=== PATIENT | male | born 1960 | race Caucasian/White ===

== ENCOUNTER 2024-08-31 10:58 | Inpatient (IN) | payer SELFPAY ==
[~2024-08-31] VITALS: Ht 175.3 cm; Wt 46.6 kg
[~2024-08-31 10:58] MED LIST: AMLO5TAB4 PO
--- NOTE | 2024-08-31 11:21 | EKG ---
[facility] Test Date: 2024-08-31 Test Time: 11:18:51 Pat Name: CAROLIN CORTÉS Department: ED Room: 414 Gender: M Archivist Economic History: 0723 : 1960 Requested By: ABIMBOLA PARKS Order Number: [id number] Reading MD: Krupa Eli Measurements Intervals [place] Rate: 72 P: 90 SD: 137 QRS: 91 QRSD: 101 T: 85 QT: 432 QTc: 475 Interpretive Statements (Incomplete analysis due to missing data in precordial lead V6) Sinus rhythm Anterior infarct, old Compared to ECG 08/23/2024 09:48:15 Atrial abnormality no longer present Left ventricular hypertrophy no longer present Myocardial infarct finding still present Electronically Signed On 09-01-2024 14:06:42 CDT by Krupa Eli Please click the below link to view image of tracing.
[2024-08-31 11:27] LABS: IMMATURE GRANULOCYTE ABSOLUTE 0.05 K/uL (0-1); NUCLEATED RED BLOOD CELLS 0.0 % (0.0-0.19); PLATELET COUNT (AUTO) 269 K/uL (130-400); RED BLOOD CELL COUNT(AUTO) 5.04 MIL/uL (4.50-6.20); RED CELL DISTRIBUTION WIDTH 13.7 % (11.0-15.5); WHITE BLOOD COUNT (AUTO) 11.6 K/uL (4.8-10.8)
--- NOTE | 2024-08-31 11:51 | HMCIMG ---
EXAM: CR Chest, 2 View. CLINICAL HISTORY: sob COMPARISON: Radiograph dated August 24, 2024 FINDINGS: Chronic interstitial lung disease. Interval increased left perihilar and bibasilar airspace disease (right greater than left) that is presumed to reflect pneumonia. Small bilateral effusions. No pneumothorax. Heart size and pulmonary vessels appear within normal limits. IMPRESSION: 1. Chronic obstructive pulmonary disease. Pneumonia with increased left perihilar and bibasilar airspace disease, right greater than left. 2. Small bilateral pleural effusions. /Silva
--- NOTE | 2024-08-31 11:55 | ERN ---
General Chief Complaint: Shortness of Breath Stated Complaint: SOB Time Seen by MD: 11:00 Source: patient History of Present Illness Initial Comments Patient is a 64-year-old gentleman coming in complaining of shortness a breath. Patient states he was hospitalized for the same reason week ago. Patient does state he has a history of COPD. Allergies: Coded Allergies: codeine (Unverified Allergy, Unknown, 08/23/24) Home Meds Active Scripts Amlodipine Besylate (Norvasc 5Mg Tab) 5 Mg Tablet, 10 MG PO DAILY for 30 Days, #30 TAB Prov:BETO COOMBS NP 08/25/24 Past Medical History Past Medical History: COPD, Hypertension, Pneumonia Past Surgical History: None ROS Dictation CONSTITUTIONAL: No chills, no fever, no weakness, no diaphoresis, no malaise. HEAD/FACE: No signs of trauma. EENT: No eye pain, no blurred vision, no tearing, no double vision, no ear pain, no ear discharge, no nose pain, no nasal congestion, no throat pain, no throat swelling, no mouth pain. RESPIRATORY: No cough, no orthopnea, SOB, no stridor, no wheezing. CARDIOVASCULAR: No chest pain, no edema, no palpitations, no syncope. GASTROINTESTINAL/ABDOMINAL: No abdominal pain, no constipation, no diarrhea, no nausea, no vomiting. GENITOURINARY: No abnormal discharge, no dysuria, no frequent urination, no hematuria. No complaints of pain in the genitals. MUSCULOSKELETAL: No back pain, no gout, no joint pain, no joint swelling, no muscle pain, no muscle stiffness, no neck pain. INTEGUMENTARY: No change in color, no change in hair/nails, no dryness, no lesion, no lumps, no rash. NEUROLOGICAL/PSYCH: No anxiety, not depressed, no emotional problem, no headache, no numbness, no pre-existing deficit, no history of seizures, no tremors, no weakness. HEMATOLOGIC/LYMPHATIC: Not anemic, no history of blood clots, no apparent bleeding, no bruising, glands not swollen. All Systems Negative, Except as Noted. Physical Exam Physical Exam Dictation VITAL SIGNS: Reviewed. GENERAL APPEARANCE: Alert, oriented x3, no acute distress, obese. HEAD AND FACE: Non-traumatic. EYES: PERRL, pink conjunctivas, eyelid no trauma, anterior chamber clear. EARS: Pinnas intact and no signs of trauma or erythema. Ear canals clear and no discharge. TMs no erythema. NOSE: No discharge, no bleeding. OROPHARYNX: Mouth normal, teeth no caries, tongue pink. Pharynx clear, no erythema. Tonsils no exudates, no abscesses noted. Mucous membrane moist. NECK: Supple, non-tender, no thyromegaly, no masses, no JVD, no bruits. BREAST: Deferred. CHEST: No tenderness, no crepitus, no paradoxical movement, no retractions. LUNGS: Clear, well-ventilated, symmetric, no rales, no wheezing, no rhonchi, no stridor, good breath sounds bilaterally. HEART: Regular rate, regular rhythm, no murmur, no gallops. VASCULAR: No peripheral edema. ABDOMEN: Soft, positive bowel sounds, nondistended, no guarding, nontender, no rebound, no masses no hepatomegaly, no splenomegaly, no Broderick's sign, no hernias. RECTAL: Deferred. GENITAL: Deferred. NEUROLOGICAL: Normal speech, gross motor function intact, gross sensory function intact. MUSCULOSKELETAL: Neck nontender, full range of motion, back nontender, full range of motion. EXTREMITIES: Nontender, full range of motion. SKIN: Color pink, dry, no turgor, no rash, no lacerations, no abrasions, no contusions. LYMPHATICS: Deferred. Results Laboratory and Microbiology Lab and Micro Result Laboratory Tests Test 08/31/24 11:19 08/31/24 12:53 White Blood Count 11.6 K/uL (4.8-10.8) H Red Blood Count 5.04 MIL/uL (4.50-6.20) Hemoglobin 15.6 g/dL (14.0-18.0) Hematocrit 46.9 % (42-54) Mean Corpuscular Volume 93.1 fL (79-99) Mean Corpuscular Hemoglobin 31.0 pg (27.0-33.0) Mean Corpuscular Hemoglobin Concent 33.3 g/dL (32.0-36.0) Red Cell Distribution Width 13.7 % (11.0-15.5) Platelet Count 269 K/uL (130-400) Mean Platelet Volume 9.3 fL (7.5-10.5) Immature Granulocyte % (Auto) 0.4 % (0-1) Neutrophils (%) (Auto) 91.0 % (40.0-77.0) H Lymphocytes (%) (Auto) 3.2 % (21.0-51.0) L Monocytes (%) (Auto) 5.2 % (3.0-13.0) Eosinophils (%) (Auto) 0.0 % (0.0-8.0) Basophils (%) (Auto) 0.2 % (0.0-5.0) Neutrophils # (Auto) 10.6 K/uL (1.8-7.7) H Lymphocytes # (Auto) 0.4 K/uL (1.0-4.8) L Monocytes # (Auto) 0.6 K/uL (0.1-1.0) Eosinophils # (Auto) 0.00 K/uL (0.00-0.70) Basophils # (Auto) 0.02 K/uL (0.00-0.20) Absolute Immature Granulocyte (auto 0.05 K/uL (0-1) Nucleated Red Blood Cells 0.0 % (0.0-0.19) Sodium Level 140 mmol/L (136-145) Potassium Level 5.0 mmol/L (3.5-5.1) Chloride Level 98 mmol/L (101-111) L Carbon Dioxide Level 33 mmol/L (21-32) H Blood Urea Nitrogen 13 mg/dL (7-18) Creatinine 1.0 mg/dL (0.5-1.3) Glomerular Filtration Rate Calc 83 mL/min (>90) Random Glucose 130 mg/dL (70-105) H Total Calcium 10.0 mg/dL (8.5-10.1) Magnesium Level 2.40 mg/dL (1.80-2.40) Troponin I High Sensitivity 7 ng/L (4-75) B-Type Natriuretic Peptide 176 pg/mL (0-100) H Urine Opiates Screen NEGATIVE (NEGATIVE) Urine Barbiturates Screen NEGATIVE (NEGATIVE) Urine Phencyclidine Screen NEGATIVE (NEGATIVE) Urine Amphetamines Screen NEGATIVE (NEGATIVE) Urine Benzodiazepines Screen POSITIVE (NEGATIVE) H Urine Cocaine Screen POSITIVE (NEGATIVE) H Urine Marijuana (THC) Screen POSITIVE (NEGATIVE) H Labs Reviewed?: Yes EKG/XRAY/US/CT/MRI EKG Comment 08/31/2024 time 11:22 a.m. Ventricular rate 74 Sinus rhythm [place] [address] wave elevation or depression X-RAY Comment [facility] [address] [place] [address] IMAGING REPORT Signed PATIENT: CAROLIN CORTÉS MR#: [id number] : 1960 SEX: M AGE: 64 LOCATION: [facility] ORDER 110 STATUS: REG ER REPORT#: [id number] SERVICE [id number] REASON: sob ORDERING PHYSICIAN: ABIMBOLA PARKS MD PROCEDURE: CXR1VW - CHEST 1VW EXAM: CR Chest, 2 View. CLINICAL HISTORY: sob COMPARISON: Radiograph dated August 24, 2024 FINDINGS: Chronic interstitial lung disease. Interval increased left perihilar and bibasilar airspace disease (right greater than left) that is presumed to reflect pneumonia. Small bilateral effusions. No pneumothorax. Heart size and pulmonary vessels appear within normal limits. IMPRESSION: 1. Chronic obstructive pulmonary disease. Pneumonia with increased left perihilar and bibasilar airspace disease, right greater than left. 2. Small bilateral pleural effusions. /Critz DICTATED BY: ARABELLA BRUNER Jr., MD DATE: 08/31/241249 ELECTRONICALLY SIGNED BY: ARABELLA BRUNER Jr., MD DATE: 08/31/24 125 MDM MDM: Differential diagnosis: Shortness of breath, pulmonary infiltrates, cocaine abuse, history of COPD, right lung infiltrate Rationale: Tests considered and ordered secondary to shared decision making include: labs, ECG and radiology Previous outside records reviewed: Old ER visits. Risk of complication and/or morbidity or mortality of patient management: None Medications-Per medication reconciliation Need for hospitalization: Patient does meet criteria for hospitalization. Need for emergency major/minor surgery: No There are no social concerns with this patient. Prescription drug management Prescriptions will include symptomatic care Patient's prior external medical records from other ER visits were reviewed by me as indicated. Prior testing and results from previous visits were reviewed. Prior tests were taken into account with medical decision making and resource utilization, independent historian/historians were used to obtain complete medical history. I independently interpreted the test that were performed, results were reviewed by me and considered findings on radiology if ordered. Medical management and examination interpretation discussions were had by me with other qualified healthcare professionals as indicated for the patient's care. Patient is a 64-year-old gentleman coming in complaining of shortness of breath. On physical exam there is crackles in bilateral lung wu. X-ray disclose a right lung infiltrate. Patient is positive for polysubstance. Patient will be admitted under the care hospitalist group for ongoing management. ED Course Orders Procedure Category Date Status Time Cbc With Differential LAB 08/31/24 Complete 11:03 Chest 1vw RAD 08/31/24 Resulted 11:03 12 Lead Ekg Tracing- EKG 08/31/24 Complete Technical 11:03 Magnesium LAB 08/31/24 Complete 11:03 Troponin I High LAB 08/31/24 Complete Sensitivity 11:03 Basic Metabolic Panel LAB 08/31/24 Complete 11:03 B-Type Natriuretic LAB 08/31/24 Complete Peptide 11:03 Drug Screen Urine LAB 08/31/24 Complete 11:55 Acetaminophen 500mg PHA 08/31/24 Complete Tab (Tylenol 500mg T 13:00 Ceftriaxone 1g Vial PHA 08/31/24 Complete (Rocephine 1g Inj) 13:30 Azithromycin 500mg+Ns PHA 08/31/24 In Process 250ml (Azithromyci 13:10 Methylprednisolone PHA 08/31/24 Complete Succ 125mg (Solu-Medr 13:30 Ipratropium/Albuterol PHA 08/31/24 Complete Neb (Duoneb) 13:30 Current Medications Medications (Trade) Dose Ordered Sig/Jeffery Route PRN Reason Start Time Stop Time Status Last Admin Dose Admin Acetaminophen (TYLenol 500MG TAB) 1,000 mg ONCE ONCE PO 08/31/24 13:00 08/31/24 13:01 DC Albuterol (DUOneb) 2 udvial ONCE ONCE IH 08/31/24 13:30 08/31/24 13:31 DC Azithromycin 250 ml @ 250 mls/hr Q24H STAT IVPB 08/31/24 13:10 08/31/24 14:09 Ceftriaxone Sodium (ROCEphine 1G INJ) 1 gm ONCE ONCE IVPB 08/31/24 13:30 08/31/24 13:31 DC Methylprednisolone Sodium Succinate (Solu-medROL 125MG) 125 mg ONCE ONCE IVP 08/31/24 13:30 08/31/24 13:31 DC Vital Signs Date Time Temp Pulse Resp B/P (MAP) Pulse Ox O2 Delivery O2 Flow Rate FiO2 08/31/24 11:05 78 22 191/94 98 Room Air* 0 21 08/31/24 10:59 98.1 81 20 133/78 98 Room Air 0 DX & DISP Disposition: Inpatient Decision to Admit Time: 13:43 Departure Impression: Primary Impression: COPD exacerbation Additional Impressions: Polysubstance abuse, Pneumonia involving right lung Condition: Stable Referrals: SELF,REFERRAL (PCP) ABIMBOLA PARKS MD Aug 31, 2024 11:55
[2024-08-31 12:27] LABS: CREATININE 1.0 mg/dL (0.5-1.3); GLOMERULAR FILTR. RATE CALC 83.0 mL/min (>90); GLUCOSE,RANDOM 130.0 mg/dL (70-105); SODIUM SERUM 140.0 mmol/L (136-145); UREA NITROGEN, BLOOD 13.0 mg/dL (7-18)
[2024-08-31 13:10] LABS: AMPHET/METH SCREEN,URINE NEGATIVE (NEGATIVE); BARBITURATE SCREEN, URINE NEGATIVE (NEGATIVE); CANNABINOID SCREEN,URINE POSITIVE (NEGATIVE); COCAINE SCREEN,URINE POSITIVE (NEGATIVE)
[2024-08-31] MEDS: AZITHROMYCIN 500MG+NS 250ML 250 ML IVPB STA (13:55)
[2024-08-31 13:57] VITALS: PULSE 77; RESP 20
[2024-08-31] MEDS ORDERED: PHARMACY COMMUNICATION MISC PRN (14:00)
[2024-08-31] MEDS ORDERED: 0.9%NACL 50ML IV SCH (14:00)
--- NOTE | 2024-08-31 14:04 | HP ---
[facility] H[facility]ORY [facility] PHYS[facility] Date of Service: Aug 31, 2024 Time of Service: 14:04 HISTORY OF PRESENT ILLNESS: 64-year-old male with past medical history of hypertension, history of tobacco use, history of alcohol use who presented to the hospital secondary to shortness of breath. Patient states he was recently admitted to [facility] and was treated for hypertension and COPD exacerbation. He was discharged on amlodipine. Since discharge he is still having shortness of breath which is present at rest and with exertion. Denies any fever, chills, cough, sputum production. He complains of right-sided chest pain which is most worse movement. Pain has been present for a few days. He states he has been compliant with amlodipine but has only been taking one tab instead of two. He quit smoking around a year ago but smoked for more than 20 years. Denies any abdominal pain, nausea, vomiting. Denied any changes in his bowel movement, dysuria. He has noted decreased appetite and weight loss. He currently does not take any inhalers at home. Labs in the ED were notable for white count of 11.6, hemoglobin was 15.6, platelet count was 269 K, sodium was 140, potassium was 5.0, creatinine was 1.0, chloride was 98, bicarb was 33. Chest x-ray was concerning for right lower lobe infiltrate with possible infiltrate also on the left side On presentation to the ED patient's blood pressure was noted to be 133/78, patient was saturating 98% on room air. The patient's blood pressure when seen at bedside was systolic 165/75, heart rate was in the 70s. REVIEW OF SYSTEMS CONSTITUTIONAL: Denies fevers, chills, or night sweats. No unintentional weight loss reported. NEUROLOGICAL: Denies headache, amaurosis fugax, motor weakness, sensory deficit, vertigo/spinning sensation, gait abnormalities, or tremors. ENT: No hearing loss, otalgia, otorrhea, rhinitis, rhinorrhea, hoarseness, or sore throat. CARDIOVASCULAR: Denies any exertional angina, dyspnea on exertion, orthopnea, paroxysmal nocturnal dyspnea, palpitations, life-threatening arrhythmias, claudication. PULMONARY: Positive for shortness of breath at rest and with exertion. Denied any cough, sputum production SLEEP: Denies morning headaches, daytime somnolence or napping. Denies difficulty falling asleep, staying asleep, waking from sleep. Denies knowledge of snoring. GASTROINTESTINAL: Denies any type of dysphagia to either liquids or solids. Denies nausea, vomiting, pyrosis, early satiety, abdominal pain, diarrhea, constipation, or changes in stool consistency or caliber. Denies coffee-ground emesis, hematemesis, hematochezia, or melanotic stools. GENITOURINARY: Denies frequency, urgency, nocturia, hematuria or incontinence (Storage/Irritative symptoms.) Low urinary stream, straining to void, urinary intermittency or hesitancy, splitting of the voiding stream, terminal dribbling. ENDOCRINOLOGIC: Denies polyuria, polydipsia, polyphagia or heat/cold intolerances. HEMATOLOGIC: Denies thrombophilia/previous clots, or coagulopathy/bleeding disorders. ONCOLOGIC: Denies personal history of malignancy. DERMATOLOGIC: Denies rashes or pruritus. PSYCHIATRIC: Denies any suicidal or homicidal ideation. Denies hallucinations. PAST MEDICAL HISTORY: Hypertension PAST SURGICAL HISTORY: Denied any previous surgical history PAST SOCIAL HISTORY: Smoking more than one year ago. He states he drinks around a pack a day for at least five years. He also does cocaine. FAMILY HISTORY: [ ] Coded Allergies: codeine (Unverified Allergy, Unknown, 08/23/24) PHYSICAL EXAM GENERAL APPEARANCE: The patient is awake, alert, and oriented, in no acute cardiopulmonary distress. NEUROLOGICAL: Cranial nerves II-XII grossly intact. Motor is 5/5 in bilateral upper and lower extremities proximal to distal. No sensory deficits. HEENT: Face is symmetric. Pupils are equal and reactive. Extraocular movements are intact. NECK: Supple. No JVD. No thyromegaly. No submental, submandibular, pre- /postauricular, occipital or supraclavicular lymphadenopathy. CHEST: Normal chest expansion. No Telemetry. LUNGS: Breath sounds are decreased bilaterally. CARDIOVASCULAR: Regular. S1 and S2 normal. No appreciable rubs, murmurs or gallops. ABDOMEN: His aorta is palpable in the midepigastric area. Nontender to palpation. : Deferred. No Shah. EXTREMITIES: Non-edematous and not cyanotic. No clubbing. Good capillary refill. SKIN: No skin breakdown. Vital Sign (Last 24 Hours) 08/31/24 08/31/24 08/31/24 10:59 11:05 13:57 Temp 98.1 Pulse 77 Resp 20 B/P (MAP) 191/94 Pulse Ox 98 O2 Delivery Room Air* O2 Flow Rate 0 FiO2 21 LABS: Laboratory: Test 08/31/24 12:53 08/31/24 11:19 Range/Units Urine Opiates Screen NEGATIVE NEGATIVE Urine Barbiturates Screen NEGATIVE NEGATIVE Urine Phencyclidine Screen NEGATIVE NEGATIVE Urine Amphetamines Screen NEGATIVE NEGATIVE Urine Benzodiazepines Screen POSITIVE H NEGATIVE Urine Cocaine Screen POSITIVE H NEGATIVE Urine Marijuana (THC) Screen POSITIVE H NEGATIVE White Blood Count 11.6 H 4.8-10.8 K/uL Red Blood Count 5.04 4.50-6.20 MIL/uL Hemoglobin 15.6 14.0-18.0 g/dL Hematocrit 46.9 42-54 % Mean Corpuscular Volume 93.1 79-99 fL Mean Corpuscular Hemoglobin 31.0 27.0-33.0 pg Mean Corpuscular Hemoglobin Concent 33.3 32.0-36.0 g/dL Red Cell Distribution Width 13.7 11.0-15.5 % Platelet Count 269 130-400 K/uL Mean Platelet Volume 9.3 7.5-10.5 fL Immature Granulocyte % (Auto) 0.4 0-1 % Neutrophils (%) (Auto) 91.0 H 40.0-77.0 % Lymphocytes (%) (Auto) 3.2 L 21.0-51.0 % Monocytes (%) (Auto) 5.2 3.0-13.0 % Eosinophils (%) (Auto) 0.0 0.0-8.0 % Basophils (%) (Auto) 0.2 0.0-5.0 % Neutrophils # (Auto) 10.6 H 1.8-7.7 K/uL Lymphocytes # (Auto) 0.4 L 1.0-4.8 K/uL Monocytes # (Auto) 0.6 0.1-1.0 K/uL Eosinophils # (Auto) 0.00 0.00-0.70 K/uL Basophils # (Auto) 0.02 0.00-0.20 K/uL Absolute Immature Granulocyte (auto 0.05 0-1 K/uL Nucleated Red Blood Cells 0.0 0.0-0.19 % Sodium Level 140 136-145 mmol/L Potassium Level 5.0 3.5-5.1 mmol/L Chloride Level 98 L 101-111 mmol/L Carbon Dioxide Level 33 H 21-32 mmol/L Blood Urea Nitrogen 13 7-18 mg/dL Creatinine 1.0 0.5-1.3 mg/dL Glomerular Filtration Rate Calc 83 >90 mL/min Random Glucose 130 H 70-105 mg/dL Total Calcium 10.0 8.5-10.1 mg/dL Magnesium Level 2.40 1.80-2.40 mg/dL Troponin I High Sensitivity 7 4-75 ng/L B-Type Natriuretic Peptide 176 H 0-100 pg/mL Current Medications Medications (Trade) Dose Ordered Sig/Jeffery Route PRN Reason Start Time Stop Time Status Last Admin Dose Admin Albuterol (DUOneb) 1 UDVIAL Q6H PRN IH SHORTNESS OF BREATH 08/31/24 14:00 09/30/24 13:59 UNV Azithromycin 250 ml @ 250 mls/hr Q24H STAT IVPB 08/31/24 13:10 08/31/24 14:09 08/31/24 13:55 250 MLS/HR Chlordiazepoxide HCl (LIBrium 25 MG CAP) 25 mg Q4H PRN PO ALCOHOL WITHDRAWAL PROTOCOL 08/31/24 14:00 09/07/24 13:59 UNV Famotidine (Pepcid 20mg Vial) 20 mg BID IV 08/31/24 14:00 09/30/24 13:59 UNV Hydralazine HCl (APRESOLine 20MG INJ) 10 mg Q6H PRN IV ADMINISTER FOR SBP > 180 08/31/24 14:00 09/30/24 13:59 UNV Lorazepam (AtiVAN) 1 mg Q4H PRN IVP ALCOHOL WITHDRAWAL PROTOCOL 08/31/24 14:00 09/07/24 13:59 UNV Methylprednisolone Sodium Succinate (Solu-medROL 40MG) 40 mg Q8H IVP 08/31/24 14:00 09/30/24 13:59 UNV Pharmacy Profile Note (Pharmacy Communication) 1 each PROTOCOL PRN MISC ETOH Withdrawal Score changes 08/31/24 14:00 09/07/24 13:59 UNV Piperacillin Sod/ Tazobactam Sod (Zosyn 3.375gm+NS 50ml) 3.375 gm Q8H IVPB 08/31/24 14:00 09/10/24 13:59 UNV DIAGNOSTICS / RADIOLOGY: [ ] ASSESSMENT: Suspected Community-acquired pneumonia POA Acute on chronic COPD exacerbation POA Hypoalbuminemia secondary to protein calorie malnutrition Hypertensive urgency Weight loss Alcohol abuse History of tobacco use Substance abuse with positive cocaine, marijuana, benzodiazepine Right-sided chest pain differential secondary to musculoskeletal etiology versus possible PE Dehydration PLAN: - patient to be admitted to PCCU -in reference to community-acquired pneumonia. Patient will be started on Zosyn and azithromycin. Obtain a sputum sample. We will also check D-dimer. If elevated we will obtain a CT angio of the chest for further evaluation. - in reference to COPD exacerbation. Patient will be started on DuoNebs q.6 hours. Start patient on Solu-Medrol q.8 hours. Obtain pulmonology consultation. Obtain a ABG -in reference to hypertension. The patient will be restarted on amlodipine. Start hydralazine for systolic blood pressure greater than 180 q.6 hours. -reference to alcohol use. The patient will be started on CIWA protocol for withdrawals. Start patient on banana. -reference to cocaine use, marijuana use. Patient was counseled regarding cocaine cessation. Morbidity and mortality was discussed with patient. Patient agreed to plan of care -obtain a ultrasound of the aorta to assess for aortic aneurysm. -further orders per hospitalization course. Advanced Care Planning Which of the following were discussed: Hospice care: Yes __ No _x_ Therapeutic options: Yes __ No __ Advance directives: Yes __ No __ Other discussions: Discussed with who?: patient (Patient, family or surrogates) Voluntary nature of this service was explained to the patient? Yes _x_ No __ Amount of time spent: 25 minutes JASPREET Reilly MD, MD Aug 31, 2024 14:04
[2024-08-31] MEDS: Solu-medROL 40MG VIAL IVP SCH (14:17)
[2024-08-31] MEDS: FAMOTIDINE 20MG VIAL IV SCH (14:17)
[2024-08-31] MEDS: ZOSYN 3.375GM +NS 50ML IVPB SCH (14:23)
[2024-08-31 15:02] VITALS: PULSE 78; RESP 18; O2SAT 98
[2024-08-31 15:11] LABS: ABG BASE EXCESS 3.0 mmol/L (-2.0-3.0); ABG HCO3 27.8 mmol/L (21.0-28.0); ABG OXYGEN SATURATION 95.4 % (94.0-98.0); ABG PCO2 43 mmHg (35-48); ABG PH 7.428 (7.350-7.450); DEVICE COMMENT RR BET; PO2, ARTERIAL BG 75.6 mmHg (83.0-108.0); TEMPERATURE, CELSIUS BG 37.0 CELSIUS (35.5-37.0); VENT MODE, BG RA (ROOM AIR)
[2024-08-31] MEDS ORDERED: IOHEXOL-350 75 ML VIAL IV ONE (15:16)
[2024-08-31] MEDS: amLODIPine 5 MG TAB PO ONE (15:17)
[2024-08-31] MEDS: THIAMINE HCL 100 MG, FOLic ACID 5 MG/ML VIAL 1 MG, M.V.I. IV [ADULT] 10 ML in 0.9%NACL ... IV SCH (15:51)
[2024-08-31 16:24] LABS: INFLUENZA TYPE A Negative For Type A (NEGATIVE); INFLUENZA TYPE B Negative For Type B (NEGATIVE)
[2024-08-31 16:49] LABS: SARS-CoV-2, RNA, NAAT NEGATIVE SARS CoV-2 (NEGATIVE)
--- NOTE | 2024-08-31 17:02 | HMCIMG ---
EXAM: CTA Chest with and without Intravenous Contrast for PE evaluation CLINICAL HISTORY: Pnuemonia. Rule out PE TECHNIQUE: Axial CTA images of the chest with and without intravenous contrast using a pulmonary embolism protocol. Multiplanar reconstructed images were created and reviewed. COMPARISON: CT images dated August 24, 2024 FINDINGS: PULMONARY ARTERIES: No evidence of central or segmental pulmonary embolism is seen. AORTA: Atherosclerotic changes in the form of vessel wall calcification in the arch of the aorta and the descending thoracic aorta. There is no evidence for aneurysm or dissection of the thoracic aorta. LUNGS: Severe bilateral centriacinar and paraseptal emphysema. ? 0.7 x 0.9 cm right upper lobe pulmonary nodule (series 4, image 53). Recommend repeat CT examination of the chest at 3 months. Multiple thin atelectatic bands are scattered in the bilateral lung wu. There is mild volume loss of the left lung with mild ipsilateral mediastinal shift, elevation of the left hemidiaphragm, and crowding of the left-sided ribs. There are left-sided subpleural reticulations and mild honeycombing in the left lung field with mild tractional bronchiectasis. Multifocal patchy areas of ground glass opacities are evident in the right lower lobe with adjacent fibrotic changes. Subpleural bullae along the anterior segment of the right lower lobe PLEURAL SPACES: Trace left, and small right bilateral pleural effusions. No pneumothorax evident. HEART: Heart size is within normal limits. No significant pericardial effusion. LYMPH NODES: No lymphadenopathy is evident. BONES: Degenerative changes in the visualised spine in the form of marginal osteophytes and endplate sclerosis. 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 No focal osseous abnormality or acute fracture. UPPER ABDOMEN: Images of the upper abdomen are unremarkable. IMPRESSION: 1. No pulmonary embolism. 2. Worsening right lower lobe pneumonia. 3. Severe bilateral emphysema with left lung volume loss, ipsilateral mediastinal shift, and left-sided subpleural reticulations, honeycombing, and tractional bronchiectasis. 4. 0.7 x 0.9 cm right upper lobe pulmonary nodule. Recommend repeat CT examination of the chest at 3 months. /Sieper
[2024-08-31 19:42] VITALS: PULSE 69; RESP 18; O2SAT 99
[2024-08-31 21:40] VITALS: O2SAT 96
[2024-08-31 21:42] VITALS: BP 151/65; PULSE 82; RESP 20; TEMP 97.5
[2024-09-01] VITALS (12 sets, daily range): BP systolic 98–176; BP diastolic 52–83; PULSE 57–80; RESP 18–20; TEMP 97.4–98.1; O2SAT 94–99
--- NOTE | 2024-09-01 01:20 | CONS ---
[facility] CONSULTATION NOTE Date Patient Seen: Aug 31, 2024 Time of Visit: 2330 Supervising Physician: [Dr. Salo Smith] Reason for Consultation: [Pulmo consult: PNA and COPD exacerbation ] Primary Care Physician: None ] Outpatient Specialists: [ ] Inpatient Consults: [BIS team- pulmo] PROBLEM LIST: COPD exacerbation-POA CAP-POA, right lung Severe bilateral emphysema-POA Bronchiectasis-POA Right lung nodule-POA Suspected xedjsmhr-wz-hhtcbs protein calorie malnutrition-POA Newly-diagnosed HTN Chronic ETOH dependence- 6-pack of beer a day Chronic nicotine disorder: reported 1-2 packs a day 50 years. He claims he quit 1 to 1/2 years ago PLAN: -Titrate oxygen to keep sats >92% -Neb treatment -I.S. q1H x 10 while awake -Obtain pneumo studies -Continue IV antibiotics for CAP coverage -Steroid therapy -Activate CIWA protocol -Consult dietitian in am -Defer to dayteam for bronchoscopy eval -Smoking cessation education for more than 5 minutes -IV Banana bag -Patient reports pulsating abdomen and plan is to do US aorta and echo in am, I did not appreciate it on my physical assessment -The rest of medical management per primary team HPI: [Per hospitalist's notes: "64-year-old male with past medical history of hypertension, history of tobacco use, history of alcohol use who presented to the hospital secondary to shortness of breath. Patient states he was recently admitted to [facility] and was treated for hypertension and COPD exacerbation. He was discharged on amlodipine. Since discharge he is still h aving shortness of breath which is present at rest and with exertion. Denies any fever, chills, cough, sputum production. He complains of right-sided chest pain which is most worse movement. Pain has been present for a few days. He states he has been compliant with amlodipine but has only been taking one tab instead of two. He quit smoking around a year ago but smoked for more than 20 years. Denies any abdominal pain, nausea, vomiting. Denied any changes in his bowel movement, dysuria. He has noted decreased appetite and weight loss. He currently does not take any inhalers at home. Labs in the ED were notable for white count of 11.6, hemoglobin was 15.6, platelet count was 269 K, sodium was 140, potassium was 5.0, creatinine was 1.0, chloride was 98, bicarb was 33. Chest x-ray was concerning for right lower lobe infiltrate with possible infiltrate also on the left side." BIS team was consulted for COPD exa and PNA. On my examination, patient is resting comfortably on the bed, on room air and in no acute distress. Physical assessment was unrevealing except for fine rales on bilateral bases. PAST MEDICAL HX: see above PAST SURGICAL HX: noncontributory SOCIAL HISTORY: No tobacco, ETOH, or illicit drug use Coded Allergies: codeine (Unverified Allergy, Unknown, 08/23/24) REVIEW OF SYSTEMS: 12 point ROS reviewed with patient. Pertinent positives mentioned above. Otherwise negative. PHYSICAL EXAM: GENERAL: alert, weak, awake oriented x [id number] HEENT: EOMI, Sclera non icteric, moist mucosa NECK: Supple, no JVD, trachea midline LUNGS: Fine rales breath sounds bilaterally. No wheezes HEART: Regular rate and rhythm. Normal S1 and S2, without murmurs ABD: Abdomen soft, nontender. Bowel sounds present EXT: No clubbing cyanosis or edema NEURO: Alert and oriented to person, follows commands Vital Signs (last 8hr) Date Time Temp Pulse Resp B/P (MAP) Pulse Ox O2 Delivery O2 Flow Rate FiO2 08/31/24 21:42 97.5 82 20 151/65 99 Room Air 08/31/24 21:40 96 Room Air* 0 21 08/31/24 19:42 69 18 N/Cannula Low lpm 21 08/31/24 19:30 98.4 73 18 149/70 100 Room Air* 0 21 08/31/24 18:31 98.4 79 18 138/66 100 Room Air* 0 21 LABS: Hematology Labs: Test 08/31/24 11:19 Range/Units White Blood Count 11.6 H 4.8-10.8 K/uL Red Blood Count 5.04 4.50-6.20 MIL/uL Hemoglobin 15.6 14.0-18.0 g/dL Hematocrit 46.9 42-54 % Mean Corpuscular Volume 93.1 79-99 fL Mean Corpuscular Hemoglobin 31.0 27.0-33.0 pg Mean Corpuscular Hemoglobin Concent 33.3 32.0-36.0 g/dL Red Cell Distribution Width 13.7 11.0-15.5 % Platelet Count 269 130-400 K/uL Mean Platelet Volume 9.3 7.5-10.5 fL Immature Granulocyte % (Auto) 0.4 0-1 % Neutrophils (%) (Auto) 91.0 H 40.0-77.0 % Lymphocytes (%) (Auto) 3.2 L 21.0-51.0 % Monocytes (%) (Auto) 5.2 3.0-13.0 % Eosinophils (%) (Auto) 0.0 0.0-8.0 % Basophils (%) (Auto) 0.2 0.0-5.0 % Neutrophils # (Auto) 10.6 H 1.8-7.7 K/uL Lymphocytes # (Auto) 0.4 L 1.0-4.8 K/uL Monocytes # (Auto) 0.6 0.1-1.0 K/uL Eosinophils # (Auto) 0.00 0.00-0.70 K/uL Basophils # (Auto) 0.02 0.00-0.20 K/uL Absolute Immature Granulocyte (auto 0.05 0-1 K/uL Nucleated Red Blood Cells 0.0 0.0-0.19 % Chemistry Labs: Test 08/31/24 11:19 Range/Units Sodium Level 140 136-145 mmol/L Potassium Level 5.0 3.5-5.1 mmol/L Chloride Level 98 L 101-111 mmol/L Carbon Dioxide Level 33 H 21-32 mmol/L Blood Urea Nitrogen 13 7-18 mg/dL Creatinine 1.0 0.5-1.3 mg/dL Glomerular Filtration Rate Calc 83 >90 mL/min Random Glucose 130 H 70-105 mg/dL Hemoglobin A1c 5.2 4.0-6.0 % Estimated Average Glucose (eAG) 103 70-126 mg/dL Total Calcium 10.0 8.5-10.1 mg/dL Magnesium Level 2.40 1.80-2.40 mg/dL Troponin I High Sensitivity 7 4-75 ng/L B-Type Natriuretic Peptide 176 H 0-100 pg/mL Albumin 3.7 3.5-5.0 g/dL Coagulation Labs: Test 08/31/24 11:19 Range/Units D-Dimer Quantitative (PE/DVT) 1513 *H 0-500 ng/mL DIAGNOSTICS / RADIOLOGY RESULTS: [ ] PLAN NEURO: Minimize central acting medications as possible. Maintain fall precautions, adequate lighting during the day PULMONARY: Supplemental 02 as needed. Maintain aspiration precautions at all times CARDIOVASCULAR: Follow hemodynamics. Vital signs per facility protocol GI & NUTRITION: Continue with nutritional support. Continue stool softeners and laxatives as needed. KIDNEYS & ELECTROLYTES: Strict monitoring of intake, output and overall fluid balance. Avoid nephrotoxic medications to the extent possible. Medications to be dosed according to renal function. Monitor electrolytes and replace as needed ENDOCRINE: Maintain blood glucose between 100-180 at all times. Hypoglycemia protocol in place INFECTIOUS DISEASE: Trend temperature, WBC and procalcitonin level Follow cultures, deescalate antibiotics as soon as possible. Panculture if new onset fever ONCOLOGY/HEMATOLOGY/COAGULATION: Monitor for s/s of bleeding Monitor hemoglobin, coagulation studies as needed SKIN: Pressure ulcer prevention per facility protocol Specialty mattress ORTHO/REHAB: Continue PT/OT Prophylaxis: Continue GI and DVT prophylaxis Code Status: Full Resuscitation Disposition: JUAN VILLASEÑOR AGLION Sep 01, 2024 01:20
[2024-09-01 07:03] LABS: IMMATURE GRANULOCYTE ABSOLUTE 0.04 K/uL (0-1); NUCLEATED RED BLOOD CELLS 0.0 % (0.0-0.19); PLATELET COUNT (AUTO) 250 K/uL (130-400); RED BLOOD CELL COUNT(AUTO) 4.17 MIL/uL (4.50-6.20); RED CELL DISTRIBUTION WIDTH 13.3 % (11.0-15.5); WHITE BLOOD COUNT (AUTO) 11.1 K/uL (4.8-10.8)
[2024-09-01 07:20] LABS: CREATININE 0.9 mg/dL (0.5-1.3); GLOMERULAR FILTR. RATE CALC 94.0 mL/min (>90); GLUCOSE,RANDOM 144.0 mg/dL (70-105); SODIUM SERUM 140.0 mmol/L (136-145); UREA NITROGEN, BLOOD 16.0 mg/dL (7-18)
[2024-09-01] MEDS ORDERED: NICOTINE 21 MG/ 24 HR PATCH TD SCH (09:00)
--- NOTE | 2024-09-01 09:50 | HMCIMG ---
EXAM: US examination of aorta and bilateral common iliac arteries. CLINICAL HISTORY: Assess for aortic aneurysm TECHNIQUE: Real-time ultrasound examination performed with image documentation. COMPARISON: None provided. FINDINGS: Diffuse atherosclerotic intimal wall calcifications present involving abdominal aorta and its branches with calcified intimal plaques. The proximal, mid, and distal aspects of abdominal aorta are normal in caliber measuring 2.2 x 2 x 1.9 cm, 2.2 x 1.9 x 1.9 cm and 2.1 x 2.3 x 2.1 cm in the tara-posterior, transverse and craniocaudal dimension dimensions respectively. Peak systolic velocity- 103 cm/sec. The right common iliac artery measures 1.1 x 1.2 x 1.2 cm in craniocaudal, AP and transverse dimensions. Peak systolic velocity- 85 cm/sec. The left common iliac artery measures 1 x 1.2 x 1.3 cm in craniocaudal, AP and transverse dimensions. Focal short segment stenosis of the left common iliac artery present as evidenced by increased peak systolic velocity of 417 cm/sec. IMPRESSION: Diffuse atherosclerotic intimal wall calcifications involving abdominal aorta and its branches with calcified intimal plaques. No evidence of abdominal aortic aneurysm the present study. Focal short segment stenosis of the left common iliac artery as evidenced by increased peak systolic velocity of 417 cm/sec. /[place]
--- NOTE | 2024-09-01 10:03 | PN ---
[facility] PROGRESS NOTE Date of Service: Sep 01, 2024 Time of Service: 09:55 SUBJECTIVE: [ ] 64-year-old male with past medical history of hypertension, history of tobacco use, history of alcohol use who presented to the hospital secondary to shortness of breath. Patient states he was recently admitted to [facility] and was treated for hypertension and COPD exacerbation. He was discharged on amlodipine. Since discharge he is still having shortness of breath which is present at rest and with exertion. Denies any fever, chills, cough, sputum production. He complains of right-sided chest pain which is most worse movement. Pain has been present for a few days. He states he has been compliant with amlodipine but has only been taking one tab instead of two. He quit smoking around a year ago but smoked for more than 20 years. Denies any abdominal pain, nausea, vomiting. Denied any changes in his bowel movement, dysuria. He has noted decreased appetite and weight loss. He currently does not take any inhalers at home. 09/01/24 patient was seen and examined patient continues on oxygen supplemental we will titrate on last admission patient did not meet criteria for home oxygen. Patient is on [facility] protocol patient came benefit for placement we will bring case management and social service technician. REVIEW OF SYSTEMS CONSTITUTIONAL: Denies fevers, chills, or night sweats. No unintentional weight loss reported. NEUROLOGICAL: Denies headache, amaurosis fugax, motor weakness, sensory deficit, vertigo/spinning sensation, gait abnormalities, or tremors. ENT: No hearing loss, otalgia, otorrhea, rhinitis, rhinorrhea, hoarseness, or sore throat. CARDIOVASCULAR: Denies any exertional angina, dyspnea on exertion, orthopnea, paroxysmal nocturnal dyspnea, palpitations, life-threatening arrhythmias, claudication. PULMONARY: Positive for shortness of breath at rest and with exertion. Denied any cough, sputum production SLEEP: Denies morning headaches, daytime somnolence or napping. Denies difficulty falling asleep, staying asleep, waking from sleep. Denies knowledge of snoring. GASTROINTESTINAL: Denies any type of dysphagia to either liquids or solids. Denies nausea, vomiting, pyrosis, early satiety, abdominal pain, diarrhea, co nstipation, or changes in stool consistency or caliber. Denies coffee-ground emesis, hematemesis, hematochezia, or melanotic stools. GENITOURINARY: Denies frequency, urgency, nocturia, hematuria or incontinence (Storage/Irritative symptoms.) Low urinary stream, straining to void, urinary intermittency or hesitancy, splitting of the voiding stream, terminal dribbling. ENDOCRINOLOGIC: Denies polyuria, polydipsia, polyphagia or heat/cold intolerances. HEMATOLOGIC: Denies thrombophilia/previous clots, or coagulopathy/bleeding disorders. ONCOLOGIC: Denies personal history of malignancy. DERMATOLOGIC: Denies rashes or pruritus. PSYCHIATRIC: Denies any suicidal or homicidal ideation. Denies hallucinations. PHYSICAL EXAM GENERAL APPEARANCE: The patient is awake, alert, and oriented, in no acute car diopulmonary distress. NEUROLOGICAL: Cranial nerves II-XII grossly intact. Motor is 5/5 in bilateral upper and lower extremities proximal to distal. No sensory deficits. HEENT: Face is symmetric. Pupils are equal and reactive. Extraocular movements are intact. NECK: Supple. No JVD. No thyromegaly. No submental, submandibular, pre- /postauricular, occipital or supraclavicular lymphadenopathy. CHEST: Normal chest expansion. No Telemetry. LUNGS: Breath sounds are decreased bilaterally. CARDIOVASCULAR: Regular. S1 and S2 normal. No appreciable rubs, murmurs or gallops. ABDOMEN: His aorta is palpable in the midepigastric area. Nontender to palpation. : Deferred. No Shah. EXTREMITIES: Non-edematous and not cyanotic. No clubbing. Good capillary refill. SKIN: No skin breakdown. Vital Signs (last 8hr) Date Time Temp Pulse Resp B/P (MAP) Pulse Ox O2 Delivery O2 Flow Rate FiO2 09/01/24 08:00 97.3 61 18 144/62 94 Room Air 24 09/01/24 06:45 64 18 N/Cannula Low lpm 21 09/01/24 05:12 64 18 153/66 97 Room Air 09/01/24 04:00 97.3 57 18 176/83 97 Room Air LABS: Laboratory: Test 09/01/24 05:39 08/31/24 15:16 08/31/24 15:08 08/31/24 12:53 Range/Units White Blood Count 11.1 H 4.8-10.8 K/uL Red Blood Count 4.17 L 4.50-6.20 MIL/uL Hemoglobin 12.8 L 14.0-18.0 g/dL Hematocrit 38.2 L 42-54 % Mean Corpuscular Volume 91.6 79-99 fL Mean Corpuscular Hemoglobin 30.7 27.0-33.0 pg Mean Corpuscular Hemoglobin Concent 33.5 32.0-36.0 g/dL Red Cell Distribution Width 13.3 11.0-15.5 % Platelet Count 250 130-400 K/uL Mean Platelet Volume 10.0 7.5-10.5 fL Immature Granulocyte % (Auto) 0.4 0-1 % Neutrophils (%) (Auto) 95.6 H 40.0-77.0 % Lymphocytes (%) (Auto) 1.7 L 21.0-51.0 % Monocytes (%) (Auto) 2.2 L 3.0-13.0 % Eosinophils (%) (Auto) 0.0 0.0-8.0 % Basophils (%) (Auto) 0.1 0.0-5.0 % Neutrophils # (Auto) 10.6 H 1.8-7.7 K/uL Lymphocytes # (Auto) 0.2 L 1.0-4.8 K/uL Monocytes # (Auto) 0.2 0.1-1.0 K/uL Eosinophils # (Auto) 0.00 0.00-0.70 K/uL Basophils # (Auto) 0.01 0.00-0.20 K/uL Absolute Immature Granulocyte (auto 0.04 0-1 K/uL Nucleated Red Blood Cells 0.0 0.0-0.19 % Sodium Level 140 136-145 mmol/L Potassium Level 3.3 L 3.5-5.1 mmol/L Chloride Level 104 101-111 mmol/L Carbon Dioxide Level 29 21-32 mmol/L Blood Urea Nitrogen 16 7-18 mg/dL Creatinine 0.9 0.5-1.3 mg/dL Glomerular Filtration Rate Calc 94 >90 mL/min Random Glucose 144 H 70-105 mg/dL Total Calcium 8.9 8.5-10.1 mg/dL Influenza Type A Antigen Negative For Type A NEGATIVE Influenza Type B Antigen Negative For Type B NEGATIVE SARS-CoV-2, RNA, NAAT NEGATIVE SARS CoV-2 NEGATIVE Blood Gas Specimen Type Arterial Arterial Blood pH 7.428 7.350-7.450 Arterial Blood Partial Pressure CO2 43 35-48 mmHg Arterial Blood Partial Pressure O2 75.6 L 83.0-108.0 mmHg Arterial Blood HCO3 27.8 21.0-28.0 mmol/L Arterial Blood Oxygen Saturation 95.4 94.0-98.0 % Arterial Blood Base Excess 3.0 -2.0-3.0 mmol/L Blood Gas Temperature 37.0 35.5-37.0 CELSIUS Blood Gas Vent Mode RA ROOM AIR FiO2 21.0 % Blood Gas Specimen Comment RR BET Urine Opiates Screen NEGATIVE NEGATIVE Urine Barbiturates Screen NEGATIVE NEGATIVE Urine Phencyclidine Screen NEGATIVE NEGATIVE Urine Amphetamines Screen NEGATIVE NEGATIVE Urine Benzodiazepines Screen POSITIVE H NEGATIVE Urine Cocaine Screen POSITIVE H NEGATIVE Urine Marijuana (THC) Screen POSITIVE H NEGATIVE Test 08/31/24 11:19 Range/Units D-Dimer Quantitative (PE/DVT) 1513 *H 0-500 ng/mL Hemoglobin A1c 5.2 4.0-6.0 % Estimated Average Glucose (eAG) 103 70-126 mg/dL Magnesium Level 2.40 1.80-2.40 mg/dL Troponin I High Sensitivity 7 4-75 ng/L B-Type Natriuretic Peptide 176 H 0-100 pg/mL Albumin 3.7 3.5-5.0 g/dL Current Medications Medications (Trade) Dose Ordered Sig/Jeffery Route PRN Reason Start Time Stop Time Status Last Admin Dose Admin Acetaminophen/ Codeine Phosphate (TYLenol-coDEINE TAB) 1 tab Q6H PRN PO MODERATE PAIN (4-6) 08/31/24 14:30 08/31/24 14:24 DC Albuterol (DUOneb) 1 UDVIAL Q6H PRN IH SHORTNESS OF BREATH 08/31/24 14:00 09/30/24 13:59 Albuterol (DUOneb) 1 UDVIAL [id number] IH 09/01/24 12:00 10/01/24 11:59 Amlodipine Besylate (NorvASC 5MG TAB) 5 mg DAILY PO 09/01/24 09:00 10/01/24 08:59 Azithromycin 250 ml @ 250 mls/hr Q24H STAT IVPB 08/31/24 13:10 08/31/24 14:09 DC 08/31/24 13:55 250 MLS/HR Budesonide (Pulmicort 0.5 Mg/2ml) 0.5 mg BIDRESP IH 09/01/24 18:00 10/01/24 17:59 Chlordiazepoxide HCl (LIBrium 25 MG CAP) 25 mg Q4H PRN PO ALCOHOL WITHDRAWAL PROTOCOL 08/31/24 14:00 09/07/24 13:59 Diazepam (VALium 5 MG/ML 2 ML SYG) 10 mg Q4H PRN IVP ALCOHOL WITHDRAWAL PROTOCOL 08/31/24 14:30 09/07/24 13:59 Doxycycline Hyclate (Doxycycline Hyclate) 100 mg BID PO 09/01/24 09:00 09/11/24 08:59 Famotidine (Pepcid 20mg Vial) 20 mg Q24H IV 08/31/24 14:00 09/30/24 13:59 08/31/24 14:17 20 MG Hydralazine HCl (APRESOLine 20MG INJ) 10 mg Q6H PRN IV ADMINISTER FOR SBP > 180 08/31/24 14:00 09/30/24 13:59 Lorazepam (AtiVAN) 1 mg Q4H PRN IVP ALCOHOL WITHDRAWAL PROTOCOL 08/31/24 14:00 08/31/24 14:08 DC Methylprednisolone Sodium Succinate (Solu-medROL 40MG) 40 mg Q8H IVP 08/31/24 14:00 09/30/24 13:59 09/01/24 05:03 40 MG Nicotine (Nicoderm) 21 mg DAILY TD 09/01/24 09:00 09/01/24 01:19 DC Pharmacy Profile Note (Pharmacy Communication) 1 each PROTOCOL PRN MISC ETOH Withdrawal Score changes 08/31/24 14:00 09/07/24 13:59 Piperacillin Sod/ Tazobactam Sod (Zosyn 3.375gm+NS 50ml) 3.375 gm Q8H IVPB 08/31/24 14:00 09/10/24 13:59 09/01/24 05:03 3.375 GM Sodium Chloride (NS 50ml) 50 ml AD IV 08/31/24 14:00 08/31/24 14:05 DC Thiamine HCl 100 mg/Folic Acid 1 mg/Multivitamins/ Minerals 10 ml/ Sodium Chloride 1,011.2 ml @ 100 mls/ hr Q24H IV 08/31/24 14:00 09/03/24 00:07 08/31/24 15:51 100 MLS/HR DIAGNOSTICS / RADIOLOGY: [ ] ASSESSMENT: Suspected Community-acquired pneumonia POA Acute on chronic COPD exacerbation POA Hypoalbuminemia secondary to protein calorie malnutrition Hypertensive urgency Weight loss Alcohol abuse History of tobacco use Substance abuse with positive cocaine, marijuana, benzodiazepine Right-sided chest pain differential secondary to musculoskeletal etiology versus possible PE Dehydration PLAN: Admit to medical-surgical Consulted blower room attendant's Antibiotics Zosyn and azithromycin IV Microbiology sputum sample pending Oxygen supplemental to keep O2 sats above 92 % as needed continues on bronchodilators and IV steroids. Continue IS while awake. smoking, Marijuana and cocaine use: Cessation was discussed provided community resources. Imaging CT chest worsening right lower lobe pneumonia. 0.7 x 0.9 cm right upper lobe pulmonary nodule. Recommend repeat CT examination of the chest at 3 months. US AORTA noted ruled out aortic aneurysm. Blood pressure well controlled continue with amlodipine. And PRN hydralazine for systolic blood pressure greater than 180 q.6 hours. Continue CIWA protocol for withdrawals. Case management for discharge planning -reference to cocaine use, marijuana use. Patient was counseled regarding cocaine cessation. Morbidity and mortality was discussed with patient. Patient agreed to plan of care -further orders per hospitalization course. ATTESTATION BY PHYSICIAN I have seen and examined the patient. I reviewed the documentation, medical decision making, and treatment plan as noted by the mid-level provider above. I agree with the findings and plan of care. Altagracia Juarez MD, ELIZABETH NP Sep 01, 2024 10:03
[2024-09-01] MEDS: DOXYCYCLINE HYCLATE 100 MG TABLET PO SCH (10:37)
[2024-09-01] MEDS: amLODIPine 5 MG TAB PO SCH (10:38)
[2024-09-01] MEDS: SODIUM CHLORIDE 3% FOR INHALATION 4 ML/AMP VIAL.NEB IH ONE (10:57)
--- NOTE | 2024-09-01 12:03 | PN ---
[facility] PROGRESS NOTE Date Patient Seen: Sep 01, 2024 Time of Visit: 12:03 Supervising Physician: Dr. Salo Smith PROBLEM LIST: Acute COPD exacerbation, POA Pneumonia, CAP Severe bilateral emphysema, POA Bronchiectasis, POA Right lung nodule, POA, likely bleb, no nodule per Dr. Smith Suspected [id number] protein calorie malnutrition-POA Hypertension Chronic ETOH dependence- 6-pack of beer a day Chronic nicotine disorder: reported 1-2 packs a day 50 years. He claims he quit 1 to 1/2 years ago Polysubstance abuse (+) cocaine, THC INTERVAL HISTORY: Patient assessed at bedside. AAOX3. Currently on room air. Complains of minimal shortness of breath with exertion. Complains of phlegm production. Denies any chest pain, abdominal pain, nausea or vomiting. Advised on polysubstance cessation. No family at bedside. PLAN: CPT and IS Continue on IV Zosyn and Doxycycline Obtain pneumo studies Continue on IV steroids No bronchoscopy warranted, no nodule noted per Dr. Smith Polysubstance/smoking cessation The rest of medical management per primary team REVIEW OF SYSTEMS: 12 point ROS reviewed with patient. Pertinent positives mentioned above. Otherwise negative. PHYSICAL EXAM: GENERAL: alert, weak, awake oriented x [id number] HEENT: EOMI, Sclera non icteric, moist mucosa NECK: Supple, no JVD, trachea midline LUNGS: Fine rales breath sounds bilaterally. No wheezes HEART: Regular rate and rhythm. Normal S1 and S2, without murmurs ABD: Abdomen soft, nontender. Bowel sounds present EXT: No clubbing cyanosis or edema NEURO: Alert and oriented to person, follows commands Vital Signs (last 8hr) Date Time Temp Pulse Resp B/P (MAP) Pulse Ox O2 Delivery O2 Flow Rate FiO2 09/01/24 10:58 77 20 09/01/24 08:00 97.3 61 18 144/62 94 Room Air 24 09/01/24 08:00 94 Room Air* 0 09/01/24 06:45 64 18 N/Cannula Low lpm 09/01/24 05:12 64 18 153/66 97 Room Air LABS: Hematology Labs: Test 09/01/24 05:39 Range/Units White Blood Count 11.1 H 4.8-10.8 K/uL Red Blood Count 4.17 L 4.50-6.20 MIL/uL Hemoglobin 12.8 L 14.0-18.0 g/dL Hematocrit 38.2 L 42-54 % Mean Corpuscular Volume 91.6 79-99 fL Mean Corpuscular Hemoglobin 30.7 27.0-33.0 pg Mean Corpuscular Hemoglobin Concent 33.5 32.0-36.0 g/dL Red Cell Distribution Width 13.3 11.0-15.5 % Platelet Count 250 130-400 K/uL Mean Platelet Volume 10.0 7.5-10.5 fL Immature Granulocyte % (Auto) 0.4 0-1 % Neutrophils (%) (Auto) 95.6 H 40.0-77.0 % Lymphocytes (%) (Auto) 1.7 L 21.0-51.0 % Monocytes (%) (Auto) 2.2 L 3.0-13.0 % Eosinophils (%) (Auto) 0.0 0.0-8.0 % Basophils (%) (Auto) 0.1 0.0-5.0 % Neutrophils # (Auto) 10.6 H 1.8-7.7 K/uL Lymphocytes # (Auto) 0.2 L 1.0-4.8 K/uL Monocytes # (Auto) 0.2 0.1-1.0 K/uL Eosinophils # (Auto) 0.00 0.00-0.70 K/uL Basophils # (Auto) 0.01 0.00-0.20 K/uL Absolute Immature Granulocyte (auto 0.04 0-1 K/uL Nucleated Red Blood Cells 0.0 0.0-0.19 % Chemistry Labs: Test 09/01/24 05:39 08/31/24 11:19 Range/Units Sodium Level 140 136-145 mmol/L Potassium Level 3.3 L 3.5-5.1 mmol/L Chloride Level 104 101-111 mmol/L Carbon Dioxide Level 29 21-32 mmol/L Blood Urea Nitrogen 16 7-18 mg/dL Creatinine 0.9 0.5-1.3 mg/dL Glomerular Filtration Rate Calc 94 >90 mL/min Random Glucose 144 H 70-105 mg/dL Total Calcium 8.9 8.5-10.1 mg/dL Hemoglobin A1c 5.2 4.0-6.0 % Estimated Average Glucose (eAG) 103 70-126 mg/dL Magnesium Level 2.40 1.80-2.40 mg/dL Troponin I High Sensitivity 7 4-75 ng/L B-Type Natriuretic Peptide 176 H 0-100 pg/mL Albumin 3.7 3.5-5.0 g/dL Coagulation Labs: Test 08/31/24 11:19 Range/Units D-Dimer Quantitative (PE/DVT) 1513 *H 0-500 ng/mL DIAGNOSTICS / RADIOLOGY RESULTS: PROCEDURE: [facility] PE - CT CHEST PE PROTOCOL WWO CONT EXAM: CTA Chest with and without Intravenous Contrast for PE evaluation CLINICAL HISTORY: Pnuemonia. Rule out PE TECHNIQUE: Axial CTA images of the chest with and without intravenous contrast using a pulmonary embolism protocol. Multiplanar reconstructed images were created and reviewed. COMPARISON: CT images dated August 24, 2024 FINDINGS: PULMONARY ARTERIES: No evidence of central or segmental pulmonary embolism is seen. AORTA: Atherosclerotic changes in the form of vessel wall calcification in the arch of the aorta and the descending thoracic aorta. There is no evidence for aneurysm or dissection of the thoracic aorta. LUNGS: Severe bilateral centriacinar and paraseptal emphysema. ? 0.7 x 0.9 cm right upper lobe pulmonary nodule (series 4, image 53). Recommend repeat CT examination of the chest at 3 months. Multiple thin atelectatic bands are scattered in the bilateral lung wu. There is mild volume loss of the left lung with mild ipsilateral mediastinal shift, elevation of the left hemidiaphragm, and crowding of the left-sided ribs. There are left-sided subpleural reticulations and mild honeycombing in the left lung field with mild tractional bronchiectasis. Multifocal patchy areas of ground glass opacities are evident in the right lower lobe with adjacent fibrotic changes. Subpleural bullae along the anterior segment of the right lower lobe PLEURAL SPACES: Trace left, and small right bilateral pleural effusions. No pneumothorax evident. HEART: Heart size is within normal limits. No significant pericardial effusion. LYMPH NODES: No lymphadenopathy is evident. BONES: Degenerative changes in the visualised spine in the form of marginal osteophytes and endplate sclerosis. 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 No focal osseous abnormality or acute fracture. UPPER ABDOMEN: Images of the upper abdomen are unremarkable. IMPRESSION: 1. No pulmonary embolism. 2. Worsening right lower lobe pneumonia. 3. Severe bilateral emphysema with left lung volume loss, ipsilateral mediastinal shift, and left-sided subpleural reticulations, honeycombing, and tractional bronchiectasis. 4. 0.7 x 0.9 cm right upper lobe pulmonary nodule. Recommend repeat CT examination of the chest at 3 months. PLAN NEURO: Minimize central acting medications as possible. Maintain fall precautions, adequate lighting during the day PULMONARY: Supplemental 02 as needed. Maintain aspiration precautions at all times CARDIOVASCULAR: Follow hemodynamics. Vital signs per facility protocol GI & NUTRITION: Continue with nutritional support. Continue stool softeners and laxatives as needed. KIDNEYS & ELECTROLYTES: Strict monitoring of intake, output and overall fluid balance. Avoid nephrotoxic medications to the extent possible. Medications to be dosed according to renal function. Monitor electrolytes and replace as needed ENDOCRINE: Maintain blood glucose between 100-180 at all times. Hypoglycemia protocol in place INFECTIOUS DISEASE: Trend temperature, WBC and procalcitonin level Follow cultures, deescalate antibiotics as soon as possible. Panculture if new onset fever ONCOLOGY/HEMATOLOGY/COAGULATION: Monitor for s/s of bleeding Monitor hemoglobin, coagulation studies as needed SKIN: Pressure ulcer prevention per facility protocol Specialty mattress ORTHO/REHAB: Continue PT/OT Prophylaxis: Continue GI and DVT prophylaxis Code Status: Full Resuscitation Disposition: per primary team WILBER MERA NP Sep 01, 2024 12:03
--- NOTE | 2024-09-01 13:46 | HMCSR ---
APPROVED REPORT EXAM: Two-dimensional and M-mode echocardiogram with Doppler and color Doppler. INDICATION ICD: Shortness of breath, assess for CHF 2D Dimensions RVDd3.9 cmLVEF(%)54.2 (>50%)LA ESV INDEX (BP)29.32 mL/m2 IVSd1.0 (0.7-1.1cm)FS(%)28 % LVDd4.5 (3.8-5.6cm)LA (2D)3.3 (1.6-4.0cm) PWd1.0 (0.7-1.1cm)Ao Root(2D)3.3 (2.0-3.7cm) LVDs3.3 (2.5-4.0cm)LVOT diam2.2 (1.8-2.4cm) IVC diam1.4 cm Deformation Strain Apical 4-16.6 % Apical 2-15.4 % Apical 3-18.1 % Global Strain-16.7 % M-Mode Dimensions EPSS0.8 cm LA (MM)3.5 (1.6-4.0cm) Ao Root(MM)2.8 (2.0-3.7cm) Aortic Valve AoV Vmax1.6 m/Lito Peak GR9.7 mmHgLVOT Vmax1.2 m/s AoV VTI0.3 mAo Mean GR4.5 mmHgLVOT VTI0.26 m GEMMA (VMAX)2.88 cm2AVA (VTI) 2.9 cm2 Mitral Valve MV E Vmax91.8 cm/sDECEL Iszr454 ms MV A Vmax85.4 cm/sP 1/2 T71 ms E/A ratio1.1MVA (PHT)3.1 cm2 TDI E/E' [id number] Medial E' Peak V8.30 cm/s Pulmonary Valve PV Vmax0.9 m/sPV VTI0.28 mPV Mean GR2.0 mmHg PV Peak GR3.3 mmHgPI End Yamila. Mariano 102.9 cm/s Left Ventricle The left ventricle is normal size. There is normal LV segmental wall motion. Mild concentric left dean tricular hypertrophy. LVEF is 55-60%. The left ventricular diastolic function is normal. Right Ventricle The right ventricle is normal size. The right ventricular systolic function is normal. Atria The left atrium size is normal. The right atrium size is normal. Aortic Valve The aortic valve is trileaflet, mildly thickened but opens well. No aortic regurgitation is present. There is no aortic valvular stenosis. Mitral Valve The mitral valve is normal in structure. There is no mitral valve regurgitation noted. There is no mi tral valve stenosis. Tricuspid Valve The tricuspid valve is normal in structure. There is no tricuspid valve regurgitation noted. Pulmonic Valve The pulmonary valve is thin and pliable, normal in structure. There is trace pulmonic valvular regurg itation. Great Vessels The aortic root is normal in size. The IVC is normal in size and collapses >50% with inspiration. Pericardium There is no pericardial effusion. The pericardium appears normal. Other Information Quality : ExcellentRhythm : NSR Conclusion LVEF is 55-60%. There is normal LV segmental wall motion. Mild concentric left ventricular hypertrophy. The left ventricular diastolic function is normal. No significant valvular abnormalities No pericardial effusion
[2024-09-01] MEDS: BUDESONIDE 0.5 MG/2 ML INH IH SCH (19:00)
[2024-09-01] MEDS: PoTASSium chloRIDE 20MEQ ER 20 MEQ ERTAB PO ONE (19:58)
[2024-09-02] VITALS (12 sets, daily range): BP systolic 113–164; BP diastolic 70–81; PULSE 60–115; RESP 16–22; TEMP 97.5–98.1; O2SAT 86–100
--- NOTE | 2024-09-02 10:28 | PN ---
[facility] PROGRESS NOTE Date of Service: Sep 02, 2024 Time of Service: 10:26 SUBJECTIVE: [ ] 64-year-old male with past medical history of hypertension, history of tobacco use, history of alcohol use who presented to the hospital secondary to shortness of breath. Patient states he was recently admitted to [facility] and was treated for hypertension and COPD exacerbation. He was discharged on amlodipine. Since discharge he is still having shortness of breath which is present at rest and with exertion. Denies any fever, chills, cough, sputum production. He complains of right-sided chest pain which is most worse movement . Pain has been present for a few days. He states he has been compliant with amlodipine but has only been taking one tab instead of two. He quit smoking around a year ago but smoked for more than 20 years. Denies any abdominal pain, nausea, vomiting. Denied any changes in his bowel movement, dysuria. He has noted decreased appetite and weight loss. He currently does not take any inhalers at home. 09/01/24 patient was seen and examined patient continues on oxygen supplemental we will titrate on last admission patient did not meet criteria for home oxygen. Patient is on CIAZ protocol patient came benefit for placement we will bring case management and hospice social worker. 09/02/24 patient seen in examined at bedside. Patient is requesting to leave wants to leave against medical advice. Advised patient to stay for he needs bronchodilators treatment with CPT. Appreciate account executive healthcare's input reviewed note in detail no bronchoscopy on this admission. REVIEW OF SYSTEMS CONSTITUTIONAL: Denies fevers, chills, or night sweats. No unintentional weight loss reported. NEUROLOGICAL: Denies headache, amaurosis fugax, motor weakness, sensory deficit, vertigo/spinning sensation, gait abnormalities, or tremors. ENT: No hearing loss, otalgia, otorrhea, rhinitis, rhinorrhea, hoarseness, or sore throat. CARDIOVASCULAR: Denies any exertional angina, dyspnea on exertion, orthopnea, paroxysmal nocturnal dyspnea, palpitations, life-threatening arrhythmias, claudication. PULMONARY: Positive for shortness of breath at rest and with exertion. Denied any cough, sputum production SLEEP: Denies morning headaches, daytime somnolence or napping. Denies difficulty falling asleep, staying asleep, waking from sleep. Denies knowledge of snoring. GASTROINTESTINAL: Denies any type of dysphagia to either liquids or solids. Denies nausea, vomiting, pyrosis, early satiety, abdominal pain, diarrhea, constipation, or changes in stool consistency or caliber. Denies coffee-ground emesis, hematemesis, hematochezia, or melanotic stools. GENITOURINARY: Denies frequency, urgency, nocturia, hematuria or incontinence (Storage/Irritative symptoms.) Low urinary stream, straining to void, urinary intermittency or hesitancy, splitting of the voiding stream, terminal dribbling. ENDOCRINOLOGIC: Denies polyuria, polydipsia, polyphagia or heat/cold intolerances. HEMATOLOGIC: Denies thrombophilia/previous clots, or coagulopathy/bleeding disorders. ONCOLOGIC: Denies personal history of malignancy. DERMATOLOGIC: Denies rashes or pruritus. PSYCHIATRIC: Denies any suicidal or homicidal ideation. Denies hallucinations. PHYSICAL EXAM GENERAL APPEARANCE: The patient is awake, alert, and oriented, in no acute cardiopulmonary distress. NEUROLOGICAL: Cranial nerves II-XII grossly intact. Motor is 5/5 in bilateral upper and lower extremities proximal to distal. No sensory deficits. HEENT: Face is symmetric. Pupils are equal and reactive. Extraocular movements are intact. NECK: Supple. No JVD. No thyromegaly. No submental, submandibular, pre- /postauricular, occipital or supraclavicular lymphadenopathy. CHEST: Normal chest expansion. No Telemetry. LUNGS: Breath sounds are decreased bilaterally. CARDIOVASCULAR: Regular. S1 and S2 normal. No appreciable rubs, murmurs or gallops. ABDOMEN: His aorta is palpable in the midepigastric area. Nontender to palpation. : Deferred. No Shah. EXTREMITIES: Non-edematous and not cyanotic. No clubbing. Good capillary refill. SKIN: No skin breakdown. Vital Signs (last 8hr) Date Time Temp Pulse Resp B/P (MAP) Pulse Ox O2 Delivery O2 Flow Rate FiO2 09/02/24 08:00 99 Room Air* 0 21 09/02/24 08:00 97.9 67 16 159/77 99 Room Air 09/02/24 06:53 61 18 N/A Room Air 21 09/02/24 04:00 97.5 60 20 160/74 100 Nasal Cannula LABS: Laboratory: Test 09/01/24 05:39 08/31/24 15:16 08/31/24 15:08 08/31/24 12:53 Range/Units White Blood Count 11.1 H 4.8-10.8 K/uL Red Blood Count 4.17 L 4.50-6.20 MIL/uL Hemoglobin 12.8 L 14.0-18.0 g/dL Hematocrit 38.2 L 42-54 % Mean Corpuscular Volume 91.6 79-99 fL Mean Corpuscular Hemoglobin 30.7 27.0-33.0 pg Mean Corpuscular Hemoglobin Concent 33.5 32.0-36.0 g/dL Red Cell Distribution Width 13.3 11.0-15.5 % Platelet Count 250 130-400 K/uL Mean Platelet Volume 10.0 7.5-10.5 fL Immature Granulocyte % (Auto) 0.4 0-1 % Neutrophils (%) (Auto) 95.6 H 40.0-77.0 % Lymphocytes (%) (Auto) 1.7 L 21.0-51.0 % Monocytes (%) (Auto) 2.2 L 3.0-13.0 % Eosinophils (%) (Auto) 0.0 0.0-8.0 % Basophils (%) (Auto) 0.1 0.0-5.0 % Neutrophils # (Auto) 10.6 H 1.8-7.7 K/uL Lymphocytes # (Auto) 0.2 L 1.0-4.8 K/uL Monocytes # (Auto) 0.2 0.1-1.0 K/uL Eosinophils # (Auto) 0.00 0.00-0.70 K/uL Basophils # (Auto) 0.01 0.00-0.20 K/uL Absolute Immature Granulocyte (auto 0.04 0-1 K/uL Nucleated Red Blood Cells 0.0 0.0-0.19 % Sodium Level 140 136-145 mmol/L Potassium Level 3.3 L 3.5-5.1 mmol/L Chloride Level 104 101-111 mmol/L Carbon Dioxide Level 29 21-32 mmol/L Blood Urea Nitrogen 16 7-18 mg/dL Creatinine 0.9 0.5-1.3 mg/dL Glomerular Filtration Rate Calc 94 >90 mL/min Random Glucose 144 H 70-105 mg/dL Total Calcium 8.9 8.5-10.1 mg/dL Influenza Type A Antigen Negative For Type A NEGATIVE Influenza Type B Antigen Negative For Type B NEGATIVE SARS-CoV-2, RNA, NAAT NEGATIVE SARS CoV-2 NEGATIVE Blood Gas Specimen Type Arterial Arterial Blood pH 7.428 7.350-7.450 Arterial Blood Partial Pressure CO2 43 35-48 mmHg Arterial Blood Partial Pressure O2 75.6 L 83.0-108.0 mmHg Arterial Blood HCO3 27.8 21.0-28.0 mmol/L Arterial Blood Oxygen Saturation 95.4 94.0-98.0 % Arterial Blood Base Excess 3.0 -2.0-3.0 mmol/L Blood Gas Temperature 37.0 35.5-37.0 CELSIUS Blood Gas Vent Mode RA ROOM AIR FiO2 21.0 % Blood Gas Specimen Comment RR BET Urine Opiates Screen NEGATIVE NEGATIVE Urine Barbiturates Screen NEGATIVE NEGATIVE Urine Phencyclidine Screen NEGATIVE NEGATIVE Urine Amphetamines Screen NEGATIVE NEGATIVE Urine Benzodiazepines Screen POSITIVE H NEGATIVE Urine Cocaine Screen POSITIVE H NEGATIVE Urine Marijuana (THC) Screen POSITIVE H NEGATIVE Test 08/31/24 11:19 Range/Units D-Dimer Quantitative (PE/DVT) 1513 *H 0-500 ng/mL Hemoglobin A1c 5.2 4.0-6.0 % Estimated Average Glucose (eAG) 103 70-126 mg/dL Magnesium Level 2.40 1.80-2.40 mg/dL Troponin I High Sensitivity 7 4-75 ng/L B-Type Natriuretic Peptide 176 H 0-100 pg/mL Albumin 3.7 3.5-5.0 g/dL Current Medications Medications (Trade) Dose Ordered Sig/Jeffery Route PRN Reason Start Time Stop Time Status Last Admin Dose Admin Acetaminophen/ Codeine Phosphate (TYLenol-coDEINE TAB) 1 tab Q6H PRN PO MODERATE PAIN (4-6) 08/31/24 14:30 08/31/24 14:24 DC Albuterol (DUOneb) 1 UDVIAL Q6H PRN IH SHORTNESS OF BREATH 08/31/24 14:00 09/30/24 13:59 Albuterol (DUOneb) 1 UDVIAL [id number] IH 09/01/24 12:00 10/01/24 11:59 09/02/24 00:16 1 UDVIAL Amlodipine Besylate (NorvASC 5MG TAB) 5 mg DAILY PO 09/01/24 09:00 10/01/24 08:59 09/02/24 07:56 5 MG Azithromycin 250 ml @ 250 mls/hr Q24H STAT IVPB 08/31/24 13:10 08/31/24 14:09 DC 08/31/24 13:55 250 MLS/HR Budesonide (Pulmicort 0.5 Mg/2ml) 0.5 mg BIDRESP IH 09/01/24 18:00 10/01/24 17:59 09/01/24 19:00 0.5 MG Chlordiazepoxide HCl (LIBrium 25 MG CAP) 25 mg Q4H PRN PO ALCOHOL WITHDRAWAL PROTOCOL 08/31/24 14:00 09/07/24 13:59 Diazepam (VALium 5 MG/ML 2 ML SYG) 10 mg Q4H PRN IVP ALCOHOL WITHDRAWAL PROTOCOL 08/31/24 14:30 09/07/24 13:59 Doxycycline Hyclate (Doxycycline Hyclate) 100 mg BID PO 09/01/24 09:00 09/11/24 08:59 09/02/24 07:56 100 MG Famotidine (Pepcid 20mg Vial) 20 mg Q24H IV 08/31/24 14:00 09/30/24 13:59 09/01/24 14:18 20 MG Hydralazine HCl (APRESOLine 20MG INJ) 10 mg Q6H PRN IV ADMINISTER FOR SBP > 180 08/31/24 14:00 09/30/24 13:59 Lorazepam (AtiVAN) 1 mg Q4H PRN IVP ALCOHOL WITHDRAWAL PROTOCOL 08/31/24 14:00 08/31/24 14:08 DC Methylprednisolone Sodium Succinate (Solu-medROL 40MG) 40 mg Q8H IVP 08/31/24 14:00 09/30/24 13:59 09/02/24 06:55 40 MG Nicotine (Nicoderm) 21 mg DAILY TD 09/01/24 09:00 09/01/24 01:19 DC Pharmacy Profile Note (Pharmacy Communication) 1 each PROTOCOL PRN MISC ETOH Withdrawal Score changes 08/31/24 14:00 09/07/24 13:59 Piperacillin Sod/ Tazobactam Sod (Zosyn 3.375gm+NS 50ml) 3.375 gm Q8H IVPB 08/31/24 14:00 09/10/24 13:59 09/02/24 06:55 3.375 GM Sodium Chloride (NS 50ml) 50 ml AD IV 08/31/24 14:00 08/31/24 14:05 DC Thiamine HCl 100 mg/Folic Acid 1 mg/Multivitamins/ Minerals 10 ml/ Sodium Chloride 1,011.2 ml @ 100 mls/ hr Q24H IV 08/31/24 14:00 09/03/24 00:07 09/01/24 14:22 100 MLS/HR DIAGNOSTICS / RADIOLOGY: [ ] ASSESSMENT: Suspected Community-acquired pneumonia POA Acute on chronic COPD exacerbation POA Hypoalbuminemia secondary to protein calorie malnutrition Hypertensive urgency Weight loss Alcohol abuse History of tobacco use Substance abuse with positive cocaine, marijuana, benzodiazepine Right-sided chest pain differential secondary to musculoskeletal etiology versus possible PE Dehydration PLAN: Admit to medical-surgical Consulted account executive healthcare's Antibiotics Zosyn and doxycycline Microbiology sputum sample pending Oxygen supplemental to keep O2 sats above 92 % as needed continues on bronchodilators and IV steroids. Continue IS while awake. smoking, Marijuana and cocaine use: Cessation was discussed provided community resources. Imaging CT chest worsening right lower lobe pneumonia. 0.7 x 0.9 cm right upper lobe pulmonary nodule. Recommend repeat CT examination of the chest at 3 months. US AORTA noted ruled out aortic aneurysm. Blood pressure well controlled continue with amlodipine. And PRN hydralazine for systolic blood pressure greater than 180 q.6 hours. Continue CIWA protocol for withdrawals. Case management for discharge planning -reference to cocaine use, marijuana use. Patient was counseled regarding cocaine cessation. Morbidity and mortality was discussed with patient. Patient agreed to plan of care -further orders per hospitalization course. ATTESTATION BY PHYSICIAN I have seen and examined the patient. I reviewed the documentation, medical decision making, and treatment plan as noted by the mid-level provider above. I agree with the findings and plan of care. Altagracia Juarez MD, ELIZABETH NP Sep 02, 2024 10:28
--- NOTE | 2024-09-02 10:53 | PN ---
[facility] PROGRESS NOTE Date Patient Seen: Sep 02, 2024 Time of Visit: 10:53 Supervising Physician: Dr. Andrez Lentz PROBLEM LIST: Acute COPD exacerbation, POA, improved Pneumonia, CAP, follow up with CT chest in three weeks. Severe bilateral emphysema, POA Bronchiectasis, POA Right lung nodule, POA, likely bleb, no nodule per Dr. Smith Suspected [id number] protein calorie malnutrition-POA Hypertension Chronic ETOH dependence- 6-pack of beer a day Chronic nicotine disorder: reported 1-2 packs a day 50 years. He claims he quit 1 to 1/2 years ago Polysubstance abuse (+) cocaine, THC INTERVAL HISTORY: Patient assessed at bedside. AAOX3. Currently on room air. States he feels back at baseline. Denies any phlegm production. Adamant he wants to go home and might leave AMA if he is not discharged. States he has trouble swallowing at times, but not today. Verbalizes he is ready to go home. 6 minute walk ordered, patient dropped to 86%. CM consulted for home oxygen. Denies any chest pain, abdominal pain, nausea or vomiting. Advised on polysubstance cessation. No family at bedside. PLAN: RX for Symbicort, albuterol PRN, prednisone PO and doxy/Augmentin sent to pharmacy Advised to follow up with pulmonology in one week and repeat CT chest in 3 weeks CM for home oxygen. CPT and IS No bronchoscopy warranted, no nodule noted per Dr. Smith Polysubstance/smoking cessation The rest of medical management per primary team REVIEW OF SYSTEMS: 12 point ROS reviewed with patient. Pertinent positives mentioned above. Otherwise negative. PHYSICAL EXAM: GENERAL: alert, weak, awake oriented x [id number] HEENT: EOMI, Sclera non icteric, moist mucosa NECK: Supple, no JVD, trachea midline LUNGS: Fine rales breath sounds bilaterally. No wheezes HEART: Regular rate and rhythm. Normal S1 and S2, without murmurs ABD: Abdomen soft, nontender. Bowel sounds present EXT: No clubbing cyanosis or edema NEURO: Alert and oriented to person, follows commands Vital Signs (last 8hr) Date Time Temp Pulse Resp B/P (MAP) Pulse Ox O2 Delivery O2 Flow Rate FiO2 09/02/24 08:00 99 Room Air* 0 21 09/02/24 08:00 97.9 67 16 159/77 99 Room Air 09/02/24 06:53 61 18 N/A Room Air 09/02/24 04:00 97.5 60 20 160/74 100 Nasal Cannula LABS: Hematology Labs: Test 09/01/24 05:39 Range/Units White Blood Count 11.1 H 4.8-10.8 K/uL Red Blood Count 4.17 L 4.50-6.20 MIL/uL Hemoglobin 12.8 L 14.0-18.0 g/dL Hematocrit 38.2 L 42-54 % Mean Corpuscular Volume 91.6 79-99 fL Mean Corpuscular Hemoglobin 30.7 27.0-33.0 pg Mean Corpuscular Hemoglobin Concent 33.5 32.0-36.0 g/dL Red Cell Distribution Width 13.3 11.0-15.5 % Platelet Count 250 130-400 K/uL Mean Platelet Volume 10.0 7.5-10.5 fL Immature Granulocyte % (Auto) 0.4 0-1 % Neutrophils (%) (Auto) 95.6 H 40.0-77.0 % Lymphocytes (%) (Auto) 1.7 L 21.0-51.0 % Monocytes (%) (Auto) 2.2 L 3.0-13.0 % Eosinophils (%) (Auto) 0.0 0.0-8.0 % Basophils (%) (Auto) 0.1 0.0-5.0 % Neutrophils # (Auto) 10.6 H 1.8-7.7 K/uL Lymphocytes # (Auto) 0.2 L 1.0-4.8 K/uL Monocytes # (Auto) 0.2 0.1-1.0 K/uL Eosinophils # (Auto) 0.00 0.00-0.70 K/uL Basophils # (Auto) 0.01 0.00-0.20 K/uL Absolute Immature Granulocyte (auto 0.04 0-1 K/uL Nucleated Red Blood Cells 0.0 0.0-0.19 % Chemistry Labs: Test 09/01/24 05:39 08/31/24 11:19 Range/Units Sodium Level 140 136-145 mmol/L Potassium Level 3.3 L 3.5-5.1 mmol/L Chloride Level 104 101-111 mmol/L Carbon Dioxide Level 29 21-32 mmol/L Blood Urea Nitrogen 16 7-18 mg/dL Creatinine 0.9 0.5-1.3 mg/dL Glomerular Filtration Rate Calc 94 >90 mL/min Random Glucose 144 H 70-105 mg/dL Total Calcium 8.9 8.5-10.1 mg/dL Hemoglobin A1c 5.2 4.0-6.0 % Estimated Average Glucose (eAG) 103 70-126 mg/dL Magnesium Level 2.40 1.80-2.40 mg/dL Troponin I High Sensitivity 7 4-75 ng/L B-Type Natriuretic Peptide 176 H 0-100 pg/mL Albumin 3.7 3.5-5.0 g/dL Coagulation Labs: Test 08/31/24 11:19 Range/Units D-Dimer Quantitative (PE/DVT) 1513 *H 0-500 ng/mL DIAGNOSTICS / RADIOLOGY RESULTS: NA PLAN NEURO: Minimize central acting medications as possible. Maintain fall precautions, adequate lighting during the day PULMONARY: Supplemental 02 as needed. Maintain aspiration precautions at all times CARDIOVASCULAR: Follow hemodynamics. Vital signs per facility protocol GI & NUTRITION: Continue with nutritional support. Continue stool softeners and laxatives as needed. KIDNEYS & ELECTROLYTES: Strict monitoring of intake, output and overall fluid balance. Avoid nephrotoxic medications to the extent possible. Medications to be dosed according to renal function. Monitor electrolytes and replace as needed ENDOCRINE: Maintain blood glucose between 100-180 at all times. Hypoglycemia protocol in place INFECTIOUS DISEASE: Trend temperature, WBC and procalcitonin level Follow cultures, deescalate antibiotics as soon as possible. Panculture if new onset fever ONCOLOGY/HEMATOLOGY/COAGULATION: Monitor for s/s of bleeding Monitor hemoglobin, coagulation studies as needed SKIN: Pressure ulcer prevention per facility protocol Specialty mattress ORTHO/REHAB: Continue PT/OT Prophylaxis: Continue GI and DVT prophylaxis Code Status: Full Resuscitation Disposition: per primary team WILBER MERA NP Sep 02, 2024 10:53
--- NOTE | 2024-09-02 11:10 | HMCIMG ---
EXAM: US for Deep Venous Thrombosis, bilateral Lower Extremity. CLINICAL HISTORY: Leg Pain and Swelling TECHNIQUE: Real-time ultrasound scan of the veins of the bilateral lower extremity with color Doppler flow, spectral waveform analysis and compression. COMPARISON: None provided. FINDINGS: DEEP VEINS: The common femoral, superficial femoral, and popliteal veins are echolucent and compressible. There is normal color Doppler flow throughout. The visualized calf veins appear patent. SOFT TISSUES: No popliteal fossa cyst or other abnormalities. IMPRESSION: No deep venous thrombosis evident on bilateral lower extremity examination. /[place]
[2024-09-02] MEDS ORDERED: COMPOUND IV REFRIGERATED 1 EACH IVSOLN MISC PRN (11:30)
[2024-09-02] MEDS ORDERED: PoTASSium chl 10% ELIXIR 20MEQ 20 MEQ/15 ML UDCUP PO PRN (12:00)
[2024-09-02] MEDS: PoTASSium chloRIDE 20MEQ ER 20 MEQ ERTAB PO PRN (13:48)
--- NOTE | 2024-09-03 15:07 | DS ---
Discharge Summary Hospital Course Summary: 64-year-old male with past medical history of hypertension, history of tobacco use, history of alcohol use who presented to the hospital secondary to shortness of breath. Patient states he was recently admitted to [facility] and was treated for hypertension and COPD exacerbation. He was discharged on amlodipine. Since discharge he is still having shortness of breath which is present at rest and with exertion. Denies any fever, chills, cough, sputum production. He complains of right-sided chest pain which is most worse movement. Pain has been present for a few days. He states he has been compliant with amlodipine but has only been taking one tab instead of two. He quit smoking around a year ago but smoked for more than 20 years. Denies any abdominal pain, nausea, vomiting. Denied any changes in his bowel movement, dysuria. He has noted decreased appetite and weight loss. He currently does not take any inhalers at home. 09/01/24 patient was seen and examined patient continues on oxygen supplemental we will titrate on last admission patient did not meet criteria for home oxygen. Patient is on [facility] protocol patient came benefit for placement we will bring case management and rn social work. 09/02/24 patient seen in examined at bedside. Patient is requesting to leave wants to leave against medical advice. Advised patient to stay for he needs bronchodilators treatment with CPT. Appreciate chimney supervisor brick's input reviewed note in detail no bronchoscopy on this admission. The patient left AMA Late entry Karyna Anderson nurse practitioner was able to arrange home oxygen. Discharged with albuterol Pro air inhaler [id number] p.o. twice a day 10 days. Symbicort inhaler two puffs b.i.d. doxycycline 100 mg p.o. seven days prednisone 40 for seven days. Assessment/Plan: Discharged DX's Suspected Community-acquired pneumonia POA Acute on chronic COPD exacerbation POA Hypoalbuminemia secondary to protein calorie malnutrition Hypertensive urgency Weight loss Alcohol abuse History of tobacco use Substance abuse with positive cocaine, marijuana, benzodiazepine Right-sided chest pain differential secondary to musculoskeletal etiology versus possible PE Dehydration PLAN: left AMA Photography Editor's nurse practitioner Karyna Yeboah was able to set up home oxygen sent patient with inhalers Symbicort and Advair oral antibiotic doxycycline and amoxicillin and prednisone. Home Medications: Active Scripts Amlodipine Besylate (Norvasc 5Mg Tab) 5 Mg Tablet, 10 MG PO DAILY for 30 Days, #30 TAB Prov:BETO COOMBS NP 08/25/24 New Medications: Albuterol Sulfate (Proair Digihaler) 90 Mcg Aer.pw.bas 90 MCG IH Q6H PRN for SHORTNESS OF BREATH/WHEEZING, #30 10 Amoxicillin/Potassium Clav (Amox Tr-K Clv 875-125 mg Tab) 875 Mg-125 Mg Tablet 1 TAB PO BID, #20 TAB 0 Refills Budesonide/Formoterol Fumarate (Symbicort 80-4.5 Mcg Inhaler) 80 Mcg-4.5 Mcg/Actuation Inhr 2 PUFF IH BID for 30 Days, #30 GM 0 Refills Doxycycline Hyclate (Doxycycline Hyclate) 100 Mg Capsule 1 CAP PO BID for 7 Days, #14 CAP 0 Refills Prednisone (Prednisone) 20 Mg Tablet 40 MG PO DAILY for 7 Days, #7 TAB ATTESTATION BY PHYSICIAN I have seen and examined the patient. I reviewed the documentation, medical decision making, and treatment plan as noted by the mid-level provider above. I agree with the findings and plan of care. Altagracia Juarez MD, ELIZABETH NP Sep 03, 2024 15:07
== END 2024-09-02 18:30 | disposition left against medical advice (07) | DRG 190 ==
LOC: EDH 10:58 → EDHIP 10:59 → 4CH 21:18
PROVIDERS: ADMIT Internal Medicine; ATTEND Internal Medicine
DX: J44.1 Chronic obstructive pulmonary disease with (acute) exacerbation (principal); J18.9 Pneumonia, unspecified organism; J47.0 Bronchiectasis with acute lower respiratory infection; E46 Unspecified protein-calorie malnutrition; Z68.1 Body mass index [BMI] 19.9 or less, adult; J44.0 Chronic obstructive pulmonary disease with (acute) lower respiratory infection; E88.09 Other disorders of plasma-protein metabolism, not elsewhere classified; I16.0 Hypertensive urgency; F10.10 Alcohol abuse, uncomplicated; F12.10 Cannabis abuse, uncomplicated; F14.10 Cocaine abuse, uncomplicated; Z53.29 Procedure and treatment not carried out because of patient's decision for other reasons; J43.9 Emphysema, unspecified; I10 Essential (primary) hypertension; Z87.891 Personal history of nicotine dependence
CPT/HCPCS: 36415; 36600; 71045; 71270; 76775; 80048; 80305; 82040; 82803; 83036; 83735; 83880; 84484; 85025; 85378; 87071; 87086; 87186; 87205; 87635; 87804; 92610; 93005; 93306; 93356; 93970; 94640; 94664; 94760; 96365; 99285; G0378; J0456; J0696; J2543; J2919; J3411; J3490; J7030; Q9967; A4600